=== PATIENT | female | born 1990 | race Caucasian/White ===

== ENCOUNTER 2017-07-20 23:19 | Emergency (ER) | payer OTHER ==
[~2017-07-20] VITALS: Ht 160 cm; Wt 65.8 kg
[~2017-07-20 23:19] MED LIST: LORTAB 10/500 T1 TAB PO; LORTAB 7.5-5001 TAB PO; MACROBID100 MG DOB; MACROBID100 MG PO; METHADONE PO; NO MEDICATIONS; NUVARING V1 VAG.RING; OMNICEF300 MG PO; PHENERGAN25 MG PO; PRENATAL VITAM1 EAC1; PRENATAL VITAM1 EAC1 PO; PYRIDIUM PO
== END 2017-07-20 23:52 | disposition home or self-care (01) ==
LOC: SED 23:19
DX: J40 Bronchitis, not specified as acute or chronic (principal); F17.200 Nicotine dependence, unspecified, uncomplicated; Z98.890 Other specified postprocedural states; Z79.899 Other long term (current) drug therapy
CPT/HCPCS: 99283